=== PATIENT | male | born 1955 | race Caucasian/White ===

== ENCOUNTER 2016-03-30 06:55 | Day surgery (SDC) | payer OTHER ==
[2016-03-30] VITALS (12 sets, daily range): BP systolic 120–169; BP diastolic 66–91; PULSE 46–82
[~2016-03-30] VITALS: Ht 167.6 cm; Wt 81.0 kg
[~2016-03-30 06:55] MED LIST: CEPHALEXIN500 M1 PO; FLONASE NASAL S16 GM NS
[2016-03-30] MEDS ORDERED: FLOMAX 0.40.4 MG/CAP PO (07:32)
[2016-03-30 07:34] LABS: HEMATOCRIT 50.2 % (42.0-52.0); HEMOGLOBIN 17.1 g/dl (13.5-18.0); MEAN CELL VOLUME 92 fl (80.0-100.0); MEAN CORPUSCULAR HEMOGLOBIN 32 pg (27.0-31.0); MEAN CORPUSCULAR HGB CONC 34 g/dl (33.0-37.0); MEAN PLATELET VOLUME 9.1 fl (7.4-10.4); PLATELET COUNT 269 K/mm3 (130-400); RED BLOOD COUNT 5.43 M/mm3 (4.20-5.60); REDCELL DISTRIBUTION WIDTH-CV 12.4 % (11.5-14.5); WHITE BLOOD COUNT 6.6 K/mm3 (4.8-10.8)
[2016-03-30] MEDS ORDERED: MOBIC15 MG PO (07:36)
[2016-03-30] MEDS ORDERED: PRAVACHOL 40MG40 MG PO (07:37)
[2016-03-30] MEDS ORDERED: KRILL OIL 3001 EACH PO (07:38)
[2016-03-30] MEDS ORDERED: ADVIL200 MG PO (07:39)
[2016-03-30 07:40] LABS: INR 1.1 (0.8-3.0); PROTHROMBIN TIME 11.8 SECONDS (9.7-12.8)
[2016-03-30 07:47] LABS: CALCIUM 9.6 mg/dL (8.4-10.2); CREATININE, serum 0.74 mg/dL (0.66-1.25); POTASSIUM 4.3 mmol/L (3.4-5.0)
[2016-03-30] MEDS ORDERED: ASPIRIN 81M81 MG/TA2 PO (11:47)
== END 2016-03-30 16:19 | disposition home or self-care (01) ==
LOC: EUO 06:55 → COL.RAD 07:00 → EUO 07:00
PROVIDERS: Internal Medicine Cardiovascular Disease
DX: I25.10 Atherosclerotic heart disease of native coronary artery without angina pectoris (principal); I08.3 Combined rheumatic disorders of mitral, aortic and tricuspid valves; Z87.891 Personal history of nicotine dependence; N52.9 Male erectile dysfunction, unspecified; E78.2 Mixed hyperlipidemia; R00.2 Palpitations; Z79.899 Other long term (current) drug therapy
CPT/HCPCS: C1760; C1894; J2250; J2704; J3010; Q9967

== ENCOUNTER 2016-10-18 11:53 | Outpatient (RCR) | payer OTHER ==
[~2016-10-18 11:53] MED LIST changes: +ADVIL200 MG PO; +ASPIRIN 81M81 MG/TA2 PO; +FLOMAX 0.40.4 MG/CAP PO; +KRILL OIL 3001 EACH PO; +MOBIC15 MG PO; +PRAVACHOL 40MG40 MG PO
== END 2016-10-20 05:54 | disposition home or self-care (01) ==
LOC: COL.CR 11:53
DX: Z48.812 Encounter for surgical aftercare following surgery on the circulatory system (principal); I34.0 Nonrheumatic mitral (valve) insufficiency

== ENCOUNTER 2016-10-29 08:18 | Emergency (ER) | payer OTHER ==
[~2016-10-29] VITALS: Ht 167.6 cm; Wt 76.4 kg
[2016-10-29 08:21] VITALS: TEMP 97.9
[2016-10-29] MEDS ORDERED: CORDARONE200 MG/TAB PO (08:36)
[2016-10-29] MEDS ORDERED: COREG 3.123.125 MG/T PO (08:37)
[2016-10-29] MEDS ORDERED: ZESTRIL2.5 MG PO (08:37)
[2016-10-29] MEDS ORDERED: AMBIEN 5MG TABLE5 MG PO (08:38)
[2016-10-29 09:18] LABS: ADJUSTED CALCIUM 9.4 mg/dL (8.4-10.2); ALANINE AMINOTRANSFERASE 33 U/L (21-72); ALBUMIN 4.2 gm/dL (3.5-5.0); ALKALINE PHOSPHATASE 55 U/L (50-136); ANION GAP 11 mmol/L (7-16); BILIRUBIN,TOTAL 0.8 mg/dL (0.0-1.0); BLOOD UREA NITROGEN 14 mg/dL (9-20); CALCIUM 9.6 mg/dL (8.4-10.2); CARBON DIOXIDE 24 mmol/L (22-30); CHLORIDE 106 mmol/L (98-107); CREATININE, serum 0.82 mg/dL (0.66-1.25); GLUCOSE 129 mg/dL (74-106); POTASSIUM 4.5 mmol/L (3.4-5.0); SODIUM 141 mmol/L (137-145); TOTAL PROTEIN 7.4 gm/dL (6.4-8.2)
[2016-10-29 09:35] LABS: PROTHROMBIN TIME 11.3 SECONDS (9.7-12.8)
[2016-10-29 09:39] LABS: TROPONIN-I < 0.012 ng/mL (0.000-0.034)
[2016-10-29 09:45] LABS: PARTIAL THROMBOPLASTIN TIME 31.6 SECONDS (26.0-37.0)
[2016-10-29 09:48] LABS: BASO % 0.8 % (0.0-2.0); EOS # 0.3 (0.0-0.7); EOS % 5.3 % (0-4.0); GRAN # 3.3 (1.4-6.5); GRAN % 61.4 % (42.2-75.2); HEMATOCRIT 47.7 % (42.0-52.0); HEMOGLOBIN 15.5 g/dl (13.5-18.0); LYMPH # 1.3 (1.2-3.4); MEAN CELL VOLUME 91 fl (80.0-100.0); MEAN CORPUSCULAR HEMOGLOBIN 30 pg (27.0-31.0); MEAN CORPUSCULAR HGB CONC 33 g/dl (33.0-37.0); MEAN PLATELET VOLUME 9.2 fl (7.4-10.4); MONO # 0.4 (0.1-0.6); MONO % 7.1 % (1.7-9.3); PLATELET COUNT 286 K/mm3 (130-400); RED BLOOD COUNT 5.25 M/mm3 (4.20-5.60); REDCELL DISTRIBUTION WIDTH-CV 14.2 % (11.5-14.5); WHITE BLOOD COUNT 5.3 K/mm3 (4.8-10.8)
[2016-10-29] MEDS ORDERED: XARELTO20 MG PO (10:49)
[2016-10-29 10:50] VITALS: BP 111/87; PULSE 96
== END 2016-10-29 11:35 | disposition home or self-care (01) ==
LOC: COL.ER 08:18
PROVIDERS: Emergency Medicine
DX: I48.92 Unspecified atrial flutter (principal); I25.10 Atherosclerotic heart disease of native coronary artery without angina pectoris; E78.5 Hyperlipidemia, unspecified; Z90.49 Acquired absence of other specified parts of digestive tract; Z95.2 Presence of prosthetic heart valve

== ENCOUNTER 2017-01-22 09:37 | Day surgery (SDC) | payer OTHER ==
[~2017-01-22] VITALS: Ht 167.7 cm; Wt 74.8 kg
[2017-01-22] VITALS (14 sets, daily range): BP systolic 100–168; BP diastolic 56–96; PULSE 36–59; TEMP 98.2
[~2017-01-22 09:37] MED LIST changes: +AMBIEN 5MG TABLE5 MG PO; +CORDARONE200 MG/TAB PO; +COREG 3.123.125 MG/T PO; +XARELTO20 MG PO; +ZESTRIL2.5 MG PO
[2017-01-22 10:21] LABS: HEMATOCRIT 49.9 % (42.0-52.0); HEMOGLOBIN 16.5 g/dl (13.5-18.0); MEAN CELL VOLUME 95 fl (80.0-100.0); MEAN CORPUSCULAR HEMOGLOBIN 31 pg (27.0-31.0); MEAN CORPUSCULAR HGB CONC 33 g/dl (33.0-37.0); MEAN PLATELET VOLUME 8.9 fl (7.4-10.4); PLATELET COUNT 260 K/mm3 (130-400); RED BLOOD COUNT 5.26 M/mm3 (4.20-5.60); WHITE BLOOD COUNT 5.4 K/mm3 (4.8-10.8)
[2017-01-22] MEDS ORDERED: ZEBETA10 MG PO (10:26)
[2017-01-22] MEDS ORDERED: PRINIVIL2.5 MG PO (10:27)
[2017-01-22] MEDS ORDERED: ASPIRIN 81M81 MG/TA2 PO (10:28)
[2017-01-22] MEDS ORDERED: COUMADIN 3MG3 MG/TAB PO (10:28)
[2017-01-22 10:33] LABS: CALCIUM 9.4 mg/dL (8.4-10.2); CREATININE, serum 0.92 mg/dL (0.66-1.25); POTASSIUM 4.5 mmol/L (3.4-5.0)
[2017-01-22 10:51] LABS: INR 2.6 (0.8-3.0); PROTHROMBIN TIME 29.6 SECONDS (9.7-12.8)
[2017-01-23 00:40] VITALS: BP 120/69; PULSE 44; TEMP 98.6
[2017-01-23 03:33] VITALS: PULSE 46
[2017-01-23 06:43] LABS: HEMATOCRIT 44.3 % (42.0-52.0); MEAN CELL VOLUME 97 fl (80.0-100.0); MEAN CORPUSCULAR HEMOGLOBIN 31 pg (27.0-31.0); MEAN CORPUSCULAR HGB CONC 32 g/dl (33.0-37.0); MEAN PLATELET VOLUME 9.4 fl (7.4-10.4); PLATELET COUNT 244 K/mm3 (130-400); RED BLOOD COUNT 4.56 M/mm3 (4.20-5.60); WHITE BLOOD COUNT 7.3 K/mm3 (4.8-10.8)
[2017-01-23 06:50] LABS: HEMOGLOBIN 14.3 g/dl (13.5-18.0)
[2017-01-23 07:05] LABS: CREATININE, serum 0.94 mg/dL (0.66-1.25); POTASSIUM 4.3 mmol/L (3.4-5.0)
[2017-01-23 07:06] LABS: INR 2.7 (0.8-3.0); PROTHROMBIN TIME 31.3 SECONDS (9.7-12.8)
[2017-01-23 08:50] VITALS: BP 115/51; PULSE 40; TEMP 97.4
[2017-01-23 11:59] VITALS: BP 135/68; PULSE 44; TEMP 97.1
== END 2017-01-23 17:20 | disposition home or self-care (01) ==
LOC: COL.CAR 09:37 → MEDICAL 18:57 → COL.CAR 01-23 17:20
PROVIDERS: Internal Medicine Cardiovascular Disease
DX: I48.92 Unspecified atrial flutter (principal); I25.10 Atherosclerotic heart disease of native coronary artery without angina pectoris; I42.8 Other cardiomyopathies; I08.3 Combined rheumatic disorders of mitral, aortic and tricuspid valves; E78.2 Mixed hyperlipidemia; I10 Essential (primary) hypertension; J45.909 Unspecified asthma, uncomplicated; G47.33 Obstructive sleep apnea (adult) (pediatric); Z79.01 Long term (current) use of anticoagulants; Z87.891 Personal history of nicotine dependence; Z82.49 Family history of ischemic heart disease and other diseases of the circulatory system; Z80.0 Family history of malignant neoplasm of digestive organs; Z83.3 Family history of diabetes mellitus; Z82.3 Family history of stroke
CPT/HCPCS: OP; J2704